=== PATIENT | female | born 1965 | race Caucasian/White ===

== ENCOUNTER → 2019-01-08 | Outpatient (CLI) | payer OTHER ==
[2019-01-08 18:23] LABS: BASO # 0.1 10^3/uL (0.0-0.2); EOS # 0.2 10^3/uL (0.0-0.50); EOS % 2.1 % (0.0-3.0); HEMATOCRIT 40.7 % (36.0-47.0); HEMOGLOBIN 13.6 g/dl (12.0-15.5); LYMPH # 2.4 10^3/uL (1.5-4.5); LYMPH % 33.1 % (24.0-44.0); MEAN CORPUSCULAR HEMOGLOBIN 29.1 pg (27.0-33.0); MEAN CORPUSCULAR HGB CONC 33.4 g/dl (32.0-36.5); MONO # 0.4 10^3/uL (0.0-0.8); MONO % 5.8 % (0.0-5.0); NEUTROPHILS # 4.2 10^3/uL (1.8-7.7); NEUTROPHILS % 57.7 % (36.0-66.0); PLATELET COUNT, AUTOMATED 318 10^3/uL (150-450); RED BLOOD COUNT 4.68 10^6/uL (4.00-5.40); WHITE BLOOD COUNT 7.3 10^3/uL (4.0-10.0)
[2019-01-08 18:43] LABS: HEMOGLOBIN A1c 5.4 %
[2019-01-08 18:46] LABS: C REACTIVE PROTEIN QUANTITATIV 0.88 MG/DL (0.00-0.30); FREE T4 1.57 NG/DL (0.76-1.46); THYROID STIMULATING HORMONE 0.083 uIU/ML (0.358-3.740); URIC ACID 6.1 MG/DL (2.6-6.0)
[2019-01-08 19:00] LABS: ERYTHROCYTE SEDIMENTATION RATE 30 mm/hr (0-30)
[2019-01-08 19:07] LABS: APPEARANCE, URINE CLEAR (CLEAR); BACTERIA, URINE AUTO NEGATIVE (NEGATIVE); BILIRUBIN, URINE AUTO NEGATIVE (NEGATIVE); BLOOD, URINE BLOOD NEGATIVE (NEGATIVE); COLOR, URINE YELLOW (YELLOW); GLUCOSE, URINE (UA) AUTO NEGATIVE (NEGATIVE); KETONE, URINE AUTO NEGATIVE (NEGATIVE); LEUKOCYTE ESTERASE, URINE AUTO NEGATIVE (NEGATIVE); MUCUS, URINE SMALL (NEGATIVE); NITRITE, URINE AUTO NEGATIVE (NEGATIVE); PROTEIN, URINE AUTO NEGATIVE (NEGATIVE); RBC, URINE AUTO 1 /HPF (0-3); SPECIFIC GRAVITY URINE AUTO 1.018 (1.002-1.035); SQUAMOUS EPITHELIAL CELL UR AU 2 /HPF (0-6); UROBILINOGEN, URINE AUTO 0.2 mg/dL (0.0-2.0); WBC, URINE AUTO 2 /HPF (0-3)
--- NOTE | 2019-01-08 21:10 | REP ---
Clinical: Adenopathy . Comparison: None . Technique: PA and lateral. Findings: The mediastinum and cardiac silhouette are normal. The lung allen are clear and without acute consolidation, effusion, or pneumothorax. The skeletal structures are intact and normal. Impression: 1. No acute cardiopulmonary process. Electronically Signed by Coy Mccoy MD 01/08/2019 09:01 P
[2019-01-12 00:10] LABS: CYCLIC CITRULLINATED PEPTIDE 6 units (0-19)
[2019-01-14 00:08] LABS: ANTINUCLEAR ANTIBODIES DIRECT Negative (Negative); HLA-B27 Positive (.); Lyme Disease IgG/IgM Antibodie <0.91 ISR (0.00-0.90); Lyme Disease IgM Ab Quantitati <0.80 index (0.00-0.79)
== END ==
LOC: M LAB 17:14
PROVIDERS: ATTEND Family Medicine
DX: M06.9 Rheumatoid arthritis, unspecified (principal); M10.9 Gout, unspecified; E03.9 Hypothyroidism, unspecified; M54.5 Low back pain; R63.5 Abnormal weight gain; R59.9 Enlarged lymph nodes, unspecified

== ENCOUNTER → 2019-07-24 | Outpatient (CLI) | payer BC ==
--- NOTE | 2019-07-24 14:09 | REP ---
ULTRASOUND SOFT TISSUES NECK: Real-time sonographic evaluation of the soft tissues of the neck performed in the region of the thyroid bed. Patient had thyroidectomy in 2004. No definite thyroid tissue is seen. No mass is seen. There is no fluid collection. IMPRESSION: No sonographic abnormality in the region of the thyroid bed. Electronically Signed by Diego Johnson MD 07/24/2019 06:51 P
== END ==
LOC: M RAD 08:54
PROVIDERS: ATTEND Otolaryngology
DX: R13.10 Dysphagia, unspecified (principal)

== ENCOUNTER 2019-09-03 08:57 | Day surgery (SDC) | payer OTHER, BC ==
[2019-09-03] VITALS (7 sets, daily range): BP systolic 86–138; BP diastolic 59–72
[~2019-09-03] VITALS: Ht 160 cm; Wt 110.0 kg
[~2019-09-03 08:57] MED LIST: CELE1CAP4 PO; CYCL10TA PO; CYMB60CA3 PO; GABA600T4 PO; HYDR-3715 PO; LEVO150T7 PO; LOSA25TA14 PO; LR 1,000 ML IV ONE; MECL-68 PO; OMEP40CA97 PO; PROPOFOL 200 MG/20 ML VIAL As Ordered ONE; SUGAMMADEX SODIUM 500 MG/5 ML VIAL (BRIDION) As Ordered ONE; ZOFR8TAB24 PO; ceFAZolin SOD 2 GM in IV 1 EA IV ONE
[2019-09-03] MEDS ORDERED: fentaNYL 100 MCG/2 ML INJECTION (J3010) As Ordered ONE ×2 (09:10→12:02)
[2019-09-03] MEDS ORDERED: PROPOFOL 200 MG/20 ML VIAL As Ordered ONE (09:10)
[2019-09-03] MEDS ORDERED: LIDOCAINE 2% INJ 100 MG/5 ML SDV (FOR ANES.) As Ordered ONE (09:10)
[2019-09-03] MEDS ORDERED: ONDANSETRON 4MG/2ML VIAL (J2405) As Ordered ONE (09:11)
[2019-09-03] MEDS ORDERED: MIDAZOLAM INJ 2 MG/2 ML VIAL (J2250) As Ordered ONE (09:11)
[2019-09-03] MEDS ORDERED: dexameTHASONE 4 MG/ML 1ML VIAL (J1100) As Ordered ONE (09:11)
[2019-09-03] MEDS ORDERED: ROCURONIUM BROMIDE 50 MG/5 ML VIAL As Ordered ONE (09:32)
[2019-09-03] MEDS ORDERED: HYDR50TA70 PO (10:01)
[2019-09-03] MEDS ORDERED: ROPIvacaine 0.5% 30 ML INJECTION (J2795 PER 1MG) As Ordered ONE (10:03)
[2019-09-03] MEDS ORDERED: SCOPOLAMINE 1MG TRANSDERMAL PATCH As Ordered ONE (10:21)
[2019-09-03] MEDS ORDERED: LABETALOL HCL 100 MG/20 ML VIAL As Ordered ONE (12:07)
[2019-09-03] MEDS: LABETALOL HCL 100 MG/20 ML VIAL IV SCH ×2 (12:08→12:13)
[2019-09-03] MEDS: fentaNYL 100 MCG/2 ML INJECTION (J3010) IV PRN ×4 (12:09→12:30)
[2019-09-03] MEDS ORDERED: hydrALAZINE INJ 20 MG/ML VIAL IV SCH (12:15)
[2019-09-03] MEDS ORDERED: LR 1,000 ML IV SCH ×2 (12:15→12:30)
[2019-09-03] MEDS ORDERED: PERCOCET 5MG/325MG TAB PO PRN (12:15)
[2019-09-03] MEDS ORDERED: HYDROMORPHONE HCL 0.5 MG/ 0.5 ML SYRINGE (J1170 PER 1) IV PRN (12:15)
[2019-09-03] MEDS ORDERED: ONDANSETRON 4MG/2ML VIAL (J2405) IV PRN ×2 (12:15→12:30)
[2019-09-03] MEDS ORDERED: MORPHINE 4 MG/ML 1ML VIAL/SYRINGE (J2270) IV PRN (12:30)
[2019-09-03] MEDS ORDERED: ACETAMINOPHEN TAB 650MG DOSE (2X325MG) PO PRN (12:30)
[2019-09-03] MEDS ORDERED: ONDANSETRON 4 MG ORAL DISINTEGRATING TAB (Q0162 PER 1MG) PO PRN (12:30)
--- NOTE | 2019-09-03 13:18 | RO ---
DATE OF PROCEDURE: 09/03/2019 PREOPERATIVE DIAGNOSIS: Right knee osteoarthritis post medial and lateral meniscus tears. POSTOPERATIVE DIAGNOSES: Right knee osteoarthritis post medial and lateral meniscus tears plus synovitis. PLANNED PROCEDURE: Right knee arthroscopy, possible partial medial meniscectomy, possible lateral meniscectomy and debridement. PROCEDURE PERFORMED: Right knee arthroscopy, partial medial meniscectomy, partial lateral meniscectomy, debridement and synovectomy. SURGEON: Boris Mcghee MD COACH DRIVER: Dr. Gil. ANESTHESIA: General anesthetic. OPERATIVE PREAMBLE: This 54-year-old female complained mostly of medial sided knee pain and swelling. She has had a specific injury where she twisted her knee as well. We talked about pros and cons, risks, benefits of nonsurgical management versus arthroscopy, possible partial medial and lateral meniscectomies and debridement. She wished to go ahead. I reiterated these risks in preoperative holding, marked the right lower extremity, and we proceeded surgery. OPERATIVE REPORT Patient brought to operating theater. She was placed supine on the operating room table. All bony prominences were padded. Tourniquet was applied the right thigh and appropriately padded. Right sided stress positioner was used. Two grams IV Ancef was administered. General anesthesia was induced. Leg was prepped and draped the usual sterile fashion. Drape was carried out after 3 minutes to allow the prep solution to thoroughly dry. Preoperative time-out was performed confirming the site and the patient and the surgery. Leg was elevated and tourniquet inflated to 250 mmHg. I made a standard high anterolateral arthroscopy portal. I examined the full intra-articular extent of the knee. I established the anteromedial portal with inside-out spinal needle localization technique. Visualization was poor as there was bleeding inside the knee continually and so I went up on the tourniquet. This helped a little bit, but I had to go up on the pressure from 25 mmHg to 40. At this point I achieved good visualization intra-articularly. Patellofemoral joint had grade II to III changes, as well as mostly grade 3 changes on the trochlea and some areas superomedially of grade 4 changes. I debrided this joint to stable cartilage rims and debrided the flaps. Medially there was a plica that I removed. I performed a synovectomy with use of electrocautery. I then went into the medial compartment as well as the gutters on the medial and lateral side. These were free of any loose bodies. On the medial side, she had grade 3 to 4 changes on the femur, mostly posteriorly, as well as grade 1 to 2 changes on the tibial side on the compartment. There was medial meniscus fraying and what appeared be a flip fragment of the mid aspect of the medial meniscus. I unflipped this and using duckbill biters and shaving instrument, debrided that part of the tear. The anterior and posterior horns were also identified and found to be stable. I debrided any loose cartilage flaps from the distal aspect of the medial femur as well. I then examined the notch. Posterior synovitis was present and I debrided this. ACL and PCL were both intact and normally positioned. I then entered the lateral compartment. Cartilage on the femur and tibial side had grade 1 to 2 changes, much less severe than the medial side. There was a small amount of fraying on the mid aspect again of the lateral meniscus, which was debrided. The anterior posterior horns appeared stable and the meniscus itself was stable to probing. I completed the synovectomy on both sides, alternating the scope through either portal. The knee was thoroughly irrigated. Arthroscopy pictures were taken and saved onto the system. Tourniquet was let down. Wound was irrigated and closed with interrupted 3-0 Ethilon superficially. Skin was cleaned with wet to dry dressing. 20 mL of 0.5% ropivacaine was then instilled in and around the portal sites. Steri-Strips were applied, followed by Adaptic 4 x 8 gauze and ABD dressings overwrapped this with two sterile 6-inch Boni bandages. The patient was awoken up from general anesthetic, transferred off the operating table and taken to the postanesthetic care unit in stable condition. All sponge, needle, instrument counts were correct. Estimated blood loss 150 mL. PLAN: The patient will be weightbearing as tolerated with crutches and start gentle range of motion. She will be discharged home according to day surgery criteria. Followup in the office in 2 weeks' time, elevate and ice the leg and change dressing postoperative day #2.
[2019-09-03] MEDS: PERCOCET 5MG/325MG TAB PO PRN ×2 (18:14→23:22)
[2019-09-04 01:46] VITALS: BP 109/66
[2019-09-04 05:48] VITALS: BP 126/75
[2019-09-04] MEDS: PERCOCET 5MG/325MG TAB PO PRN ×3 (08:19→18:30)
[2019-09-04 09:49] VITALS: BP 105/66
[2019-09-04 14:59] VITALS: BP 107/67
== END 2019-09-04 18:30 | disposition home or self-care (01) ==
LOC: M SDC 08:57 → M MS5PR 14:10 → M SDC 09-04 18:30
PROVIDERS: ATTEND Orthopaedic Surgery Sports Medicine
DX: M17.11 Unilateral primary osteoarthritis, right knee (principal); S83.281A Other tear of lateral meniscus, current injury, right knee, initial encounter; S83.241A Other tear of medial meniscus, current injury, right knee, initial encounter; Y92.89 Other specified places as the place of occurrence of the external cause; X58.XXXA Exposure to other specified factors, initial encounter; Y99.0 Civilian activity done for income or pay; M65.861 Other synovitis and tenosynovitis, right lower leg; M06.9 Rheumatoid arthritis, unspecified; E03.9 Hypothyroidism, unspecified; K21.9 Gastro-esophageal reflux disease without esophagitis; Z85.850 Personal history of malignant neoplasm of thyroid; G43.909 Migraine, unspecified, not intractable, without status migrainosus; G47.30 Sleep apnea, unspecified; G89.4 Chronic pain syndrome; Z79.899 Other long term (current) drug therapy; Z88.5 Allergy status to narcotic agent; Z88.7 Allergy status to serum and vaccine; Z88.8 Allergy status to other drugs, medicaments and biological substances; Z91.018 Allergy to other foods; J30.2 Other seasonal allergic rhinitis
CPT/HCPCS: 29876; 29880; 97116; 97161; 97530; J0690; J1100; J2250; J2405; J2795; J3010

== ENCOUNTER → 2019-11-01 | Outpatient (CLI) | payer BC ==
[~2019-11-01] MED LIST changes: +HYDR50TA70 PO; -LR 1,000 ML IV ONE; -PROPOFOL 200 MG/20 ML VIAL As Ordered ONE; -SUGAMMADEX SODIUM 500 MG/5 ML VIAL (BRIDION) As Ordered ONE; -ceFAZolin SOD 2 GM in IV 1 EA IV ONE
[2019-11-01 14:29] LABS: BASO # 0.1 10^3/uL (0.0-0.2); BASO % 0.9 % (0.0-1.0); EOS # 0.3 10^3/uL (0.0-0.5); HEMOGLOBIN 11.8 g/dl (12.0-15.5); LYMPH # 2.1 10^3/uL (1.5-5.0); LYMPH % 36.6 % (24.0-44.0); MEAN CORPUSCULAR HEMOGLOBIN 28.9 pg (27.0-33.0); MEAN CORPUSCULAR HGB CONC 31.9 g/dl (32.0-36.5); MEAN CORPUSCULAR VOLUME 90.7 fl (80.0-96.0); MONO # 0.3 10^3/uL (0.0-0.8); MONO % 5.5 % (0.0-5.0); NEUTROPHILS # 2.9 10^3/uL (1.5-8.5); NEUTROPHILS % 51.6 % (36.0-66.0); PLATELET COUNT, AUTOMATED 319 10^3/uL (150-450); RED BLOOD COUNT 4.08 10^6/uL (4.00-5.40); WHITE BLOOD COUNT 5.6 10^3/uL (4.0-10.0)
[2019-11-01 14:51] LABS: ALBUMIN 3.2 GM/DL (3.2-5.2); ALT/SGPT 33 U/L (12-78); BILIRUBIN,TOTAL 0.3 MG/DL (0.2-1.0); BLOOD UREA NITROGEN 12 MG/DL (7-18); CALCIUM LEVEL 8.9 MG/DL (8.5-10.1); CARBON DIOXIDE LEVEL 30 MEQ/L (21-32); CHLORIDE LEVEL 106 MEQ/L (98-107); GLOMERULAR FILTRATION RATE > 60.0 (>51); GLUCOSE, FASTING 75 MG/DL (70-100); POTASSIUM SERUM 4.3 MEQ/L (3.5-5.1); RHEUMATOID FACTOR QUANT 92.9 IU/ML (<15.0); SODIUM LEVEL 141 MEQ/L (136-145); TOTAL PROTEIN 6.4 GM/DL (6.4-8.2)
[2019-11-01 14:55] LABS: ERYTHROCYTE SEDIMENTATION RATE 25 mm/hr (0-30)
[2019-11-02 11:50] LABS: HEPATITIS B SURFACE ANTIBODY POSITIVE (POSITIVE)
[2019-11-02 12:01] LABS: HEPATITIS B SURFACE ANTIGEN NEGATIVE (NEGATIVE)
[2019-11-02 12:27] LABS: HEPATITIS C VIRUS ABY INDEX 0.2 INDEX (<0.8)
[2019-11-02 12:29] LABS: HEPATITIS B CORE ANTIBODY IGM NEGATIVE (NEGATIVE); HIV 1&2 SCREEN CENTAUR NEGATIVE (NEGATIVE)
[2019-11-02 12:30] LABS: HEPATITIS A ANTIBODY IGM NEGATIVE (NEGATIVE)
[2019-11-04 10:30] LABS: ANTINUCLEAR ANTIBODIES DIRECT Negative (Negative); CYCLIC CITRULLINATED PEPTIDE 12 units (0-19); CYTOMEGALOVIRUS IgG ANTIBODY >10.00 U/mL (0.00-0.59); EBV VIRAL CAPSID AG IgM <36.0 U/mL (0.0-35.9); HEPATITIS B CORE ANTIBODY IGG Positive (Negative); HERPES ZOSTER, VARICELLA IgG 317 index (Immune >165)
== END ==
LOC: M LRY 11:27 → MERGE 11:27
PROVIDERS: ATTEND Internal Medicine Rheumatology
DX: M06.9 Rheumatoid arthritis, unspecified (principal)

== ENCOUNTER → 2020-02-23 | Outpatient (CLI) | payer BC ==
[~2020-02-23] MED LIST changes: +CYCL-707 PO; -CYCL10TA PO; -MECL-68 PO; +MECL1TAB31 PO
[2020-02-23 16:27] LABS: BASO # 0.1 10^3/uL (0.0-0.2); BASO % 0.9 % (0.0-1.0); EOS # 0.1 10^3/uL (0.0-0.5); HEMATOCRIT 36.6 % (36.0-47.0); LYMPH # 2.5 10^3/uL (1.5-5.0); LYMPH % 36.2 % (24.0-44.0); MEAN CORPUSCULAR HEMOGLOBIN 29.1 pg (27.0-33.0); MEAN CORPUSCULAR HGB CONC 32.8 g/dl (32.0-36.5); MEAN CORPUSCULAR VOLUME 88.8 fl (80.0-96.0); MONO # 0.4 10^3/uL (0.0-0.8); MONO % 5.5 % (0.0-5.0); NEUTROPHILS # 3.8 10^3/uL (1.5-8.5); NEUTROPHILS % 55.1 % (36.0-66.0); PLATELET COUNT, AUTOMATED 357 10^3/uL (150-450); RED BLOOD COUNT 4.12 10^6/uL (4.00-5.40)
[2020-02-23 16:44] LABS: ERYTHROCYTE SEDIMENTATION RATE 29 mm/hr (0-30)
[2020-02-23 17:00] LABS: ALBUMIN 3.5 GM/DL (3.2-5.2); ALT/SGPT 22 U/L (12-78); BILIRUBIN,TOTAL 0.3 MG/DL (0.2-1.0); BLOOD UREA NITROGEN 19 MG/DL (7-18); C REACTIVE PROTEIN QUANTITATIV 0.94 MG/DL (0.00-0.30); CALCIUM LEVEL 9.2 MG/DL (8.5-10.1); CARBON DIOXIDE LEVEL 28 MEQ/L (21-32); CHLORIDE LEVEL 105 MEQ/L (98-107); CREATININE FOR GFR 0.65 MG/DL (0.55-1.30); GLOMERULAR FILTRATION RATE > 60.0 (>51); GLUCOSE, FASTING 94 MG/DL (70-100); POTASSIUM SERUM 4.3 MEQ/L (3.5-5.1); SODIUM LEVEL 140 MEQ/L (136-145); TOTAL PROTEIN 6.8 GM/DL (6.4-8.2)
[2020-02-26 00:06] LABS: HBV HBV DNA not detected IU/mL (.)
== END ==
LOC: M LRY 13:45
PROVIDERS: ATTEND Internal Medicine
DX: M05.79 Rheumatoid arthritis with rheumatoid factor of multiple sites without organ or systems involvement (principal)

== ENCOUNTER 2020-03-01 12:11 | Emergency (ER) | payer OTHER, BC ==
[~2020-03-01] VITALS: Ht 157.5 cm; Wt 113.3 kg
[2020-03-01] MEDS ORDERED: FOLI1TAB11 (12:29)
[2020-03-01] MEDS ORDERED: METH2.5T48 (12:29)
[2020-03-01] MEDS ORDERED: ACETAMINOPHEN 500 MG TAB PO ONE (14:00)
[2020-03-01] MEDS ORDERED: ISOVUE-370 76% 100ML VIAL As Ordered ONE (14:47)
[2020-03-01 15:30] LABS: BASO # 0.1 10^3/uL (0.0-0.2); BASO % 0.7 % (0.0-1.0); EOS # 0.1 10^3/uL (0.0-0.5); EOS % 1.5 % (0.0-3.0); HEMATOCRIT 39.1 % (36.0-47.0); HEMOGLOBIN 12.7 g/dl (12.0-15.5); LYMPH # 2.2 10^3/uL (1.5-5.0); LYMPH % 29.8 % (24.0-44.0); MEAN CORPUSCULAR HEMOGLOBIN 29.3 pg (27.0-33.0); MEAN CORPUSCULAR HGB CONC 32.5 g/dl (32.0-36.5); MEAN CORPUSCULAR VOLUME 90.1 fl (80.0-96.0); MONO # 0.4 10^3/uL (0.0-0.8); NEUTROPHILS # 4.5 10^3/uL (1.5-8.5); NEUTROPHILS % 61.9 % (36.0-66.0); PLATELET COUNT, AUTOMATED 320 10^3/uL (150-450); RED BLOOD COUNT 4.34 10^6/uL (4.00-5.40); WHITE BLOOD COUNT 7.3 10^3/uL (4.0-10.0)
[2020-03-01] MEDS ORDERED: KETOROLAC 30 MG/ML 1ML VIAL IV ONE (16:45)
[2020-03-01 16:48] VITALS: BP 135/61
--- NOTE | 2020-03-01 16:54 | REP ---
RIGHT WRIST, FOUR VIEWS: There is no evidence of an acute fracture, dislocation or intrinsic bone disease. IMPRESSION: No fracture or dislocation. Electronically Signed by Diego Johnson MD 03/02/2020 09:34 A
--- NOTE | 2020-03-01 16:54 | REP ---
RIGHT SHOULDER, THREE VIEWS: There is no evidence of an acute fracture, dislocation or intrinsic bone disease. IMPRESSION: No fracture or dislocation. Electronically Signed by Diego Johnson MD 03/02/2020 09:34 A
--- NOTE | 2020-03-01 17:04 | REP ---
LEFT KNEE, FOUR VIEWS: There is no evidence of an acute fracture, dislocation or intrinsic bone disease. There is chondrocalcinosis. IMPRESSION: No fracture or dislocation. Electronically Signed by Diego Johnson MD 03/02/2020 09:34 A
--- NOTE | 2020-03-01 17:10 | REP ---
THORACIC SPINE, AP AND LATERAL: AP and lateral views of thoracic spine performed. No compression fracture or malalignment is seen. There is normal thoracic kyphosis. There is moderate spurring of the mid to lower thoracic vertebral bodies. There is mild disc space narrowing and subchondral sclerosis at all levels. The posterior elements are intact. IMPRESSION: Degenerative changes without fracture or dislocation. Electronically Signed by Diego Johnson MD 03/02/2020 09:34 A
--- NOTE | 2020-03-01 17:14 | REP ---
REASON FOR EXAM: Trauma. PRIORS: None. CONTRAST: 100 mL [id number]. There is no mediastinal or hilar adenopathy. There are no pleural or pericardial effusions. The imaged upper abdomen is within normal limits. Imaged osseous structures are within normal limits. Evaluation of the lung allen shows no abnormal nodules, masses, or opacities. IMPRESSION: CT findings are within normal limits. Electronically Signed by Cyrus Pereira DO 03/02/2020 08:59 A
--- NOTE | 2020-03-01 17:19 | REP ---
CT BRAIN WITHOUT CONTRAST: REASON: Trauma. PRIORS: None. TECHNIQUE: 4.5 mm contiguous transaxial sections were obtained from the skull base to the cerebral convexities with thin cuts through the posterior fossa without the administration of intravenous contrast. FINDINGS: The ventricles and sulci are consistent with the patient's age. There are no extra-axial fluid collections. There is no mass effect. The deep cerebral white matter is consistent with the patient's age. The orbital and petrous structures, cerebellopontine angles, and posterior fossa are unremarkable. The sella turcica, cavernous, and paracavernous structures are essentially unremarkable. The visualized portions of the paranasal sinuses and mastoid air cells are clear. Images of the skull base show no gross abnormality. IMPRESSION: Essentially unremarkable CT examination of the brain. Electronically Signed by Cyrus Pereira DO 03/02/2020 09:00 A
--- NOTE | 2020-03-01 17:24 | REP ---
REASON: Pain in the neck after trauma. There are no priors. Vertebral body height and alignment is within normal limits. There is a mild cervical kyphosis. There is mild degenerative disc space narrowing at every level with mild anterior and posterior osteophytic ridging, but particularly at the C5-6 level. The facet joints are well aligned bilaterally. 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 There is no evidence of an acute fracture. There is no abnormal paraspinal soft tissue swelling. IMPRESSION: Chronic changes as described above. There is no evidence of an acute fracture. Electronically Signed by Cyrus Pereira DO 03/02/2020 09:00 A
== END 2020-03-01 16:49 | disposition home or self-care (01) ==
LOC: M ED 12:11
DX: S06.0X0A Concussion without loss of consciousness, initial encounter (principal); W01.198A Fall on same level from slipping, tripping and stumbling with subsequent striking against other object, initial encounter; Y92.89 Other specified places as the place of occurrence of the external cause; Y93.01 Activity, walking, marching and hiking; Y99.0 Civilian activity done for income or pay; G43.909 Migraine, unspecified, not intractable, without status migrainosus; E03.9 Hypothyroidism, unspecified; K21.9 Gastro-esophageal reflux disease without esophagitis; M79.7 Fibromyalgia; M06.9 Rheumatoid arthritis, unspecified; G47.30 Sleep apnea, unspecified; R13.10 Dysphagia, unspecified; Z85.850 Personal history of malignant neoplasm of thyroid; Z88.7 Allergy status to serum and vaccine; Z91.018 Allergy to other foods; Z79.899 Other long term (current) drug therapy
CPT/HCPCS: 70450; 71260; 72072; 72125; 73030; 73110; 73564; 80047; 85025; 96374; 99284; J1885; Q9967

== ENCOUNTER → 2020-03-10 | Outpatient (CLI) | payer OTHER, BC ==
[~2020-03-10] MED LIST changes: +FOLI1TAB11; +METH2.5T48
--- NOTE | 2020-03-10 16:12 | REP ---
Head CT without contrast: History: Fall. Comparison head CT study March 01, 2020. CT findings: Bone window settings demonstrate an intact bony calvarium. There is no evidence of skull fracture or incidental bony calvarial lesion. The visualized paranasal sinuses appear clear. No intraorbital abnormality is seen. On soft tissue window setting images; the lateral, third, and fourth ventricles are normal in size and position. Johnson-white differentiation pattern is normal above and below the tentorium. There are is no evidence of intracranial hemorrhage. No mass, edema, infarction, or midline shift is seen. No extra-axial fluid collection is appreciated. Impression: Negative noncontrast head CT. Electronically Signed by Kvng Junior MD 03/10/2020 04:04 P
--- NOTE | 2020-03-10 17:12 | REP ---
CT STUDY OF THE CERVICAL SPINE WITHOUT CONTRAST: HISTORY: Injury in a fall. Comparison CT study is from March 01, 2020. TECHNIQUE: Helical scanning is acquired and overlapping 2 mm high resolution axial images were generated and reviewed at bone and soft tissue window settings. Coronal and sagittal multiplanar re-formations images are generated. CT FINDINGS: There is no evidence of cervical spine element fracture. No skull base fracture is seen. Cervical vertebral body heights are preserved. Alignment is normal. 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 This is a developmental variant. It is unchanged. The patient is status post bilateral thyroidectomy. There are degenerative disc changes at C5-6 with left-sided and mild right-sided uncovertebral spurring at C5-6. Facet joints are normally aligned bilaterally at each cervical level on multiplanar re-formations images. There is no evidence of intraspinal or paraspinal hematoma. No extra vertebral abnormality is seen. IMPRESSION: Degenerative spondylosis changes status quo. Degenerative disc changes most pronounced at C5-6. Otherwise negative CT study of the cervical spine without contrast. No fracture seen. Electronically Signed by Kvng Junior MD 03/11/2020 08:18 A
== END ==
LOC: M RAD 15:11
PROVIDERS: ATTEND Family Medicine
DX: M47.812 Spondylosis without myelopathy or radiculopathy, cervical region (principal); Z91.81 History of falling

== ENCOUNTER → 2020-05-04 | Outpatient (CLI) | payer BC ==
[2020-05-04 16:23] LABS: BASO # 0.1 10^3/uL (0.0-0.2); BASO % 0.9 % (0.0-1.0); EOS # 0.1 10^3/uL (0.0-0.5); EOS % 1.9 % (0.0-3.0); HEMATOCRIT 39.3 % (36.0-47.0); LYMPH # 2.1 10^3/uL (1.5-5.0); LYMPH % 35.9 % (24.0-44.0); MEAN CORPUSCULAR HEMOGLOBIN 30.4 pg (27.0-33.0); MEAN CORPUSCULAR HGB CONC 33.1 g/dl (32.0-36.5); MONO # 0.4 10^3/uL (0.0-0.8); MONO % 6.3 % (0.0-5.0); NEUTROPHILS # 3.2 10^3/uL (1.5-8.5); NEUTROPHILS % 54.8 % (36.0-66.0); PLATELET COUNT, AUTOMATED 347 10^3/uL (150-450); RED BLOOD COUNT 4.27 10^6/uL (4.00-5.40); WHITE BLOOD COUNT 5.7 10^3/uL (4.0-10.0)
[2020-05-04 16:36] LABS: ALBUMIN 3.4 GM/DL (3.2-5.2); ALT/SGPT 24 U/L (12-78); BILIRUBIN,TOTAL 0.6 MG/DL (0.2-1.0); BLOOD UREA NITROGEN 14 MG/DL (7-18); C REACTIVE PROTEIN QUANTITATIV 1.27 MG/DL (0.00-0.30); CALCIUM LEVEL 9.5 MG/DL (8.5-10.1); CARBON DIOXIDE LEVEL 30 MEQ/L (21-32); CHLORIDE LEVEL 105 MEQ/L (98-107); CREATININE FOR GFR 0.75 MG/DL (0.55-1.30); GLOMERULAR FILTRATION RATE > 60.0 (>51); GLUCOSE, FASTING 76 MG/DL (70-100); POTASSIUM SERUM 4.5 MEQ/L (3.5-5.1); SODIUM LEVEL 138 MEQ/L (136-145); TOTAL PROTEIN 7.2 GM/DL (6.4-8.2)
[2020-05-04 16:45] LABS: ERYTHROCYTE SEDIMENTATION RATE 45 mm/hr (0-30)
== END ==
LOC: M LRY 10:17
PROVIDERS: ATTEND Internal Medicine
DX: M05.79 Rheumatoid arthritis with rheumatoid factor of multiple sites without organ or systems involvement (principal)

== ENCOUNTER → 2020-05-04 | Outpatient (CLI) | payer BC ==
--- NOTE | 2020-05-04 12:27 | REP ---
Clinical: Postmenopausal bleeding. Technique: Transabdominal pelvic ultrasound followed by transvaginal examination for better evaluation of the medium and adnexa. Findings: The bladder is under distended but grossly normal in appearance and measures 7.3 x 5.3 x 8.2 cm. Heterogeneous anteverted uterus measures 5.8 x 2.1 x 3.5 cm. Endometrial complex is thickened to 9.5 mm. No discrete uterine or endometrial abnormality is identified. The ovaries are not visible on either transabdominal or transvaginal examination. No pelvic fluid or adnexal mass lesion identified. Impression: 1. Atrophic uterus with thickened endometrial complex. No discrete uterine abnormality identified. 2. Ovaries not visible Electronically Signed by Coy Mccoy MD 05/04/2020 12:19 P
== END ==
LOC: M LRY 09:36
PROVIDERS: ATTEND Nurse Practitioner Adult Health
DX: N85.8 Other specified noninflammatory disorders of uterus (principal); N95.0 Postmenopausal bleeding